=== PATIENT | female | born 1995 | race Caucasian/White ===

== ENCOUNTER 2017-06-07 14:26 | Emergency (ER) | payer OTHER ==
[~2017-06-07] VITALS: Ht 154.9 cm; Wt 78.0 kg
[~2017-06-07 14:26] MED LIST: FAMO-96 PO; IBUP-1542 PO; MAG355OR15 PO
[2017-06-07 14:37] VITALS: Ht 154.9 cm; Wt 78.0 kg
--- NOTE | 2017-06-07 15:44 | ERD ---
ER Documentation Chief Complaint Chief Complaint right 3rd knuckle deformity, bruising, & mild pain from a fall at home HPI 21-year-old female states that she was playing with a large dog that pushed her and she fell into the car hitting the right fourth and fifth knuckles. Patient is right-hand dominant, she describes achy pain that is diffuse with swelling and bruising over the right fourth and fifth metacarpals. Pain is achy, moderate, worse with movement and better at rest. She denies paresthesias or weakness. ROS All systems reviewed and are negative except as per history of present illness. Medications Home Meds Active Scripts Acetaminophen* (Tylophen*) 500 Mg Capsule, 1 CAP PO Q6H Y for PAIN AND OR ELEVATED TEMP, #20 CAP Prov:FANNY JEAN-BAPTISTE PA-C 06/07/17 Ibuprofen* (Motrin*) 600 Mg Tab, 600 MG PO Q6, #15 TAB Prov:RAMÓN VAZQUEZ CONTINUITY COORDINATOR 11/23/15 Mag Hydrox/Al Hydrox/Simeth (Maalox Max Strength Susp) 769 Ml Oral.susp, 2 TSP PO TID, #4 OZ Prov:BELGICA HUA MD 01/05/15 Famotidine* (Pepcid*) 20 Mg Tablet, 20 MG PO BID for 14 Days, TAB Prov:BELGICA HUA MD 01/05/15 Allergies Allergies: Coded Allergies: No Known Allergy (Unverified , 01/05/15) PMhx/Soc Hx Alcohol Use: No Hx Substance Use: No Hx Tobacco Use: No Physical Exam Vitals Vital Signs Date Time Temp Pulse Resp B/P Pulse Ox O2 Delivery O2 Flow Rate FiO2 06/07/17 14:37 99.1 68 16 133/69 98 Physical Exam General: Well-developed, well-nourished. The patient appears in no acute distress. HEENT: Head is normocephalic, atraumatic. No scleral icterus. Neck: Supple. Nontender. Lungs: Clear to auscultation. Normal air movement. Heart: Regular rate and rhythm. S1 and S2 are normal. No murmurs, gallops, or rubs. Abdomen: Nondistended. Extremities: Swelling at the dorsum of the right fourth and fifth metacarpals with ecchymosis, there is tenderness over the right fourth and metacarpals. Patient is able to make a fist. Radial, ulnar, median nerve is intact. Capillary refill less than 2 seconds, sensation distally intact. Neurologic: Alert and oriented 3. No focal deficits. Normal speech and gait. Skin: Normal turgor. No rash or lesions. Results 24 hrs Current Medications Medications (Trade) Dose Ordered Sig/Akanksha Route PRN Reason Start Time Stop Time Status Last Admin Dose Admin Ibuprofen (Motrin) 600 mg ONCE ONCE PO 06/07/17 16:00 06/07/17 16:01 DC 06/07/17 15:38 DIAGNOSTIC IMAGING REPORT Patient: ALESIA WILCOX : 1995 Age: 21 Sex: F MR #: [id number] DOS: 06/07/17 1534 Ordering MD: FANNY JEAN-BAPTISTE PA-C Location: [facility] Room/Bed: PROCEDURE: XR Right Hand. CLINICAL INDICATION: Fourth and fifth metacarpophalangeal joint pain from trauma. TECHNIQUE: Three views of the right hand were obtained. COMPARISON: No prior studies are available for comparison. FINDINGS: There is no acute fracture or dislocation. The joint spaces are maintained. No erosive changes are visualized. There is soft tissue swelling around the fifth metacarpal and proximal phalanx. RPTAT: ZZ IMPRESSION: 1. No acute bony abnormality. 2. Soft tissue swelling around the fifth metacarpal and proximal phalanx. .Kelley Yanes MD, MD Date Time Electronically viewed and signed by .Kelley Yanes MD, on 06/07/2017 17: 06 .T/ CC: FANNY JEAN-BAPTISTE PA-C Procedures/MDM Medical decision m[age]-year-old female was pushed when she was playing with a dog and it caused her to fall forward onto the car, patient's x-rays of the right hand are normal, there is no evidence of acute fracture. There is soft tissue swelling was consistent with a contusion. No evidence of fracture, dislocation, tendon or ligamentous injury. Departure Diagnosis: Primary Impression: Injury of hand Condition: Good FANNY JEAN-BAPTISTE PA-C Jun 07, 2017 15:44
[2017-06-07] MEDS ORDERED: IBUPROFEN 600 MG TAB PO ONE (16:00)
--- NOTE | 2017-06-07 17:06 | RADRPT ---
PROCEDURE: XR Right Hand. CLINICAL INDICATION: Fourth and fifth metacarpophalangeal joint pain from trauma. TECHNIQUE: Three views of the right hand were obtained. COMPARISON: No prior studies are available for comparison. FINDINGS: There is no acute fracture or dislocation. The joint spaces are maintained. No erosive changes are visualized. There is soft tissue swelling around the fifth metacarpal and proximal phalanx. RPTAT: ZZ IMPRESSION: 1. No acute bony abnormality. 2. Soft tissue swelling around the fifth metacarpal and proximal phalanx. .Kelley Yanes MD, MD Date Time Electronically viewed and signed by .Kelley Yanes MD, on 06/07/2017 17:06 .T/
[2017-06-07] MEDS ORDERED: ACET500C5 PO (17:09)
== END 2017-06-07 17:29 | disposition home or self-care (01) ==
LOC: FTE 14:26
DX: S60.221A Contusion of right hand, initial encounter (principal); W18.39XA Other fall on same level, initial encounter; Y92.89 Other specified places as the place of occurrence of the external cause
CPT/HCPCS: 73130; Z7502; Z7610

== ENCOUNTER 2018-03-15 09:49 | Emergency (ER) | END 2018-03-15 10:59 | disposition home or self-care (01) ==